=== PATIENT | female | born 1945 | race African-American/Black ===

== ENCOUNTER → 2016-10-25 | Day surgery (SDC) | payer MEDICARE ==
[~2016-10-25] MED LIST: ALBUTEROL 0.5ML INH; BENAZEPRIL-HCT1 EAC1 PO; BISOPROLOL-HCT1 EAC1 PO; CALCIUM 500 +1 EAC2 PO; CATAPRES0.1 MG PO; CLONIDINE PO; CORDARONE200 M1 PO; DESYREL50 MG PO; EFFEXOR-XR75 MG PO; FEMARA2.5 MG PO; FLEXERIL PO; FLONASE 0.05% N16 G1; GABAPENTIN800 MG PO; GENTEAL TEARS 015 M1 OU; HYDROCODON-ACE1 EAC5 PO; IBRANCE125 MG; KLOR-CON PO; LATANOPROST2.5 ML OU; MORPHINE SUL PO; MORPHINE SULFAT60 M1 PO; MS CONTIN30 MG PO; OXYCODONE HCL30 MG PO; XGEVA120 MG/1.7; [UNRECOGNIZED DRUG - OTHER] INJ
--- NOTE | ~2016-10-25 | OR ---
Unit #: [id number] #: [id number] Patient: MARITZA CORRALES [id number] [address] [place], [place] [address] [id number] O MR#: [id number] NAME: MARITZA CORRALES ROOM: Date of Procedure: 10/25/2016 Admission Date: 10/25/2016 Surgeon: Adrian Buck M.D. : 1945 Attending Physician: Adrian Buck M.D. Primary Care Physician: Katlyn Shields M.D. OPERATIVE REPORT JOB NOTE: CC: [facility] PREOPERATIVE DIAGNOSES Back pain, radiculopathy, spondylolisthesis, spinal stenosis, degenerative disk disease. POSTOPERATIVE DIAGNOSES Back pain, radiculopathy, spondylolisthesis, spinal stenosis, degenerative disk disease. PROCEDURE PERFORMED Lumbar epidural steroid injection with intravenous sedation and fluoroscopic guidance for needle localization. INDICATIONS FOR PROCEDURE The patient is a 71-year-old female with metastatic breast cancer. She also had worsening back and right hip and lower extremity pain, which is intermittent. Workup demonstrated multilevel multifactorial degenerative change with severe stenosis at L3-L4 and L5-S1, most significant pathology at L5-S1 with spondylolisthesis and severe neural foraminal stenosis. Plan is for trial of epidural steroids transforaminal versus translaminar will be done. I think translaminar is a better idea due to the fact that she has had a significant back pain as well . If this is not settle the radicular issue, the transforaminal could be considered. DESCRIPTION OF PROCEDURE The patient was placed in the seated position. Standard monitors were applied. Sterile prep and drape then of the lumbar area was performed. 2 mg of Versed were given for sedation and anxiolysis, which were adequate. The skin then at the L5-S1 level was localized with 1% lidocaine. An 18-gauge [employer] needle was then advanced via loss of resistance technique and fluoroscopic guidance in toward the epidural space. After confirming proper positioning with fluoroscopy and radiographic contrast, 80 mg of Depo-Medrol and 4 mL of 0.125% bupivacaine were deposited. The patient tolerated the procedure otherwise well and was discharged to recovery room in stable condition. Dictated by... Adrian Buck M.D. Unit #: [id number] #: [id number] Patient: MARITZA CORRALES LHP/modl TD: 10/26/2016 01:32 JOB #: [id number] OPERATIVE REPORT Page 1 of 1 X Adrian Buck MD X PROCEDURE OPERATIVE NOTE
== END | disposition home or self-care (01) ==
LOC: CCSC 09:46
DX: M51.16 Intervertebral disc disorders with radiculopathy, lumbar region (principal); M48.07 Spinal stenosis, lumbosacral region; M48.06 Spinal stenosis, lumbar region; M99.73 Connective tissue and disc stenosis of intervertebral foramina of lumbar region; M43.17 Spondylolisthesis, lumbosacral region; C79.81 Secondary malignant neoplasm of breast; I10 Essential (primary) hypertension; J44.9 Chronic obstructive pulmonary disease, unspecified; F32.9 Major depressive disorder, single episode, unspecified; Z79.51 Long term (current) use of inhaled steroids; Z79.899 Other long term (current) drug therapy
CPT/HCPCS: 82947; J1040; J2250

== ENCOUNTER → 2016-12-19 | Outpatient (CLI) | payer MEDICARE | END | disposition home or self-care (01) | LOC: CLAB 11:46 | DX: H57.11 Ocular pain, right eye (principal); H53.8 Other visual disturbances; H25.813 Combined forms of age-related cataract, bilateral; H43.393 Other vitreous opacities, bilateral; E11.9 Type 2 diabetes mellitus without complications | CPT/HCPCS: 36415; 85652; 86140 ==